=== PATIENT | male | born 1985 | race Caucasian/White ===

== ENCOUNTER 2017-03-10 18:08 | Emergency (ER) | payer OTHER ==
[~2017-03-10] VITALS: Ht 182.9 cm; Wt 98.1 kg
[~2017-03-10 18:08] MED LIST: DENIES
[2017-03-10 18:11] VITALS: Ht 182.9 cm; Wt 98.1 kg
--- NOTE | 2017-03-10 20:45 | ERD ---
ER Documentation Chief Complaint Date/Time DATE: 03/10/17 TIME: 20:41 Chief Complaint FELL A WEEK, HAS LEFT FOOT PAIN AND SWELLING HPI This patient is a 32-year-old male with no significant medical history presenting to the emergency department with left foot pain and swelling for the past 4 days. The patient did twist his left ankle approximately 1 week ago but pain resolved shortly after. 3 days after that injury occurred, and his left foot began with swelling and pain. Pain is aggravated by walking. Pain is alleviated with rest. He rates the pain a 6 out of 10 on the pain scale. He has taken no medication for relief of symptoms. He denies fevers, chills, or other symptoms currently. ROS All systems reviewed and are negative except as per history of present illness. Medications Home Meds Active Scripts Ibuprofen* (Motrin*) 600 Mg Tab, 600 MG PO Q6, #30 TAB Prov:ZO LO PA-C 03/10/17 Sulfamethoxazole/Trimethoprim* (Bactrim Ds* Tablet) 1 Each Tablet, 1 TAB PO BID for 7 Days, #14 TAB Prov:ZO LO PA-C 03/10/17 Cephalexin* (Keflex*) 500 Mg Capsule, 500 MG PO QID for 7 Days, #28 CAP Prov:ZO LO PA-C 03/10/17 Reported Medications [Denies] No Conflict Check 11/02/10 Allergies Allergies: Coded Allergies: No Known Allergies (Verified Allergy, Mild, 11/02/10) PMhx/Soc History of Surgery: No (DENIES MED AND SURG HX.) Anesthesia Reaction: No Hx Neurological Disorder: No Hx Respiratory Disorders: No Hx Cardiac Disorders: No Hx Psychiatric Problems: No Hx Miscellaneous Medical Probl: No Hx Alcohol Use: No Hx Substance Use: No Hx Tobacco Use: No Smoking Status: Never smoker Physical Exam Vitals Vital Signs Date Time Temp Pulse Resp B/P Pulse Ox O2 Delivery O2 Flow Rate FiO2 03/10/17 18:11 98.1 83 24 140/80 99 Physical Exam Const: Obese male in mild distress secondary to pain. Head: Atraumatic Eyes: Normal Conjunctiva ENT: Normal External Ears, Nose and Mouth. Neck: Full range of motion..~ No meningismus. Resp: Clear to auscultation bilaterally Cardio: Regular rate and rhythm, no murmurs Abd: Soft, non tender, non distended. Normal bowel sounds Skin: There is soft tissue swelling and erythema and warmth to the left foot. Back: No midline or flank tenderness Ext: No cyanosis, or edema. There is soft tissue swelling and erythema and warmth to the dorsal aspect of left foot with associated tenderness to palpation. The ankle joint shows no ecchymosis, swelling, redness, or erythema. There are no open sores or lesions to the left lower extremity noted. Patient has full range of motion of the left ankle. The right lower extremity is normal in appearance. Neur: Awake and alert Psych: Normal Mood and Affect Results 24 hrs Current Medications Medications (Trade) Dose Ordered Sig/Ruby Route PRN Reason Start Time Stop Time Status Last Admin Dose Admin Acetaminophen/ Hydrocodone Bitart ([place] (5/325)) 1 tab ONCE ONCE PO 03/10/17 21:00 03/10/17 21:01 DC 03/10/17 20:55 [place] [id number] Radiology Main Line: [phone] DIAGNOSTIC IMAGING REPORT Patient: TED RUSHING : 1985 Age: 32 Sex: M MR #: [id number] DOS: 03/10/17 0000 Ordering MD: ZO LO PA-C Location: E Room/Bed: PROCEDURE: XR Left Ankle CLINICAL INDICATION: Pain, swelling TECHNIQUE: Standard 3 view radiographs were submitted. COMPARISON: None FINDINGS: Osseous structures: A corticated ossification is seen at the tip of the lateral malleolus which likely represents a separate ossification center. No acute fracture is identified. Joint spaces: The ankle mortise is anatomically maintained. Soft tissues: There is soft tissue swelling seen about the lateral malleolus compatible with a sprain. IMPRESSION: Left ankle sprain. Physician Nola Date Time Electronically viewed and signed by Physician Nola on 03/10/2017 21:37 RH/ CC: ZO LO PA-C PROCEDURE: XR Left Foot CLINICAL INDICATION: Pain, swelling TECHNIQUE: AP, oblique, and lateral radiographs were submitted. COMPARISON: None FINDINGS: Osseous structures: appear well mineralized and intact with no fracture or destructive process identified. Joint spaces: are well maintained, with no significant spurring, erosion or joint effusion evident. Soft tissues: appear unremarkable. IMPRESSION: Unremarkable left foot. Physician Nola Date Time Electronically viewed and signed by Physician Nola on 03/10/2017 21:39 RH/ CC: ZO LO PA-C Procedures/MDM 32-year-old male presenting to the emergency department with complaints of left foot pain, redness, and swelling for the past 4 days. On physical examination the patient's vitals are within normal limits. Exam of the left lower extremity shows redness, swelling, and warmth and tenderness palpation of the left foot. The ankle appears normal. Diagnosis may be consistent with cellulitis, fracture, gout, and other etiologies. X-ray of the left ankle showed ankle sprain. X-ray of the left foot showed no acute abnormality. Radiology studies were interpreted by radiologist. The patient was given p.o. [place] in the department and he was feeling improved on reevaluation. Workup in the department is most likely consistent with cellulitis and he will be treated as an outpatient with a prescription for Bactrim and Keflex and ibuprofen. Strict ER return precautions were discussed. Close follow-up with the primary care physician was advised. If symptoms continue the patient was advised to return to the emergency department in 48 hours for repeat evaluation. Departure Diagnosis: Primary Impression: Foot pain Laterality: left Qualified Code: M79.672 - Left foot pain Additional Impression: Cellulitis Site of cellulitis: extremity Site of cellulitis of extremity: lower extremity Laterality: left Qualified Code: L03.116 - Cellulitis of left lower extremity Condition: Fair Patient Instructions: Cellulitis Additional Instructions: Follow up with your PCP within the next 1-3 days for a repeat evaluation. If you require a referral to a specialist, your Primary Care Provider may be able to provide this for you. In most patient cases, a referral is not required. If you have further questions regarding this matter, please ask your Primary Care Provider. Return the the emergency department immediately if symptoms worsen or change. If you have any questions regarding medications, ask your pharmacist or us before you leave. If any adverse reactions, occur while taking your medications, discontinue the treatment and return to the emergency department immediately. If any new or worsening symptoms, uncontrolled fevers, or other unexplained symptoms occur, return to the emergency department immediately. Take your medications as directed, and complete the entire course of treatment. ZO LO PA-C Mar 10, 2017 20:45
[2017-03-10] MEDS ORDERED: HYDROCODONE/APAP (5/325) TAB PO ONE (21:00)
--- NOTE | 2017-03-10 21:38 | RADRPT ---
PROCEDURE: XR Left Ankle CLINICAL INDICATION: Pain, swelling TECHNIQUE: Standard 3 view radiographs were submitted. COMPARISON: None FINDINGS: Osseous structures: A corticated ossification is seen at the tip of the lateral malleolus which like ly represents a separate ossification center. No acute fracture is identified. Joint spaces: The ankle mortise is anatomically maintained. Soft tissues: There is soft tissue swelling seen about the lateral malleolus compatible with a sprai n. IMPRESSION: Left ankle sprain. Physician Nola Date Time Electronically viewed and signed by Luigi Wells Physician on 03/10/2017 21:37 /
--- NOTE | 2017-03-10 21:39 | RADRPT ---
PROCEDURE: XR Left Foot CLINICAL INDICATION: Pain, swelling TECHNIQUE: AP, oblique, and lateral radiographs were submitted. COMPARISON: None FINDINGS: Osseous structures: appear well mineralized and intact with no fracture or destructive process iden tified. Joint spaces: are well maintained, with no significant spurring, erosion or joint effusion evident. Soft tissues: appear unremarkable. IMPRESSION: Unremarkable left foot. Physician Nola Date Time Electronically viewed and signed by Luigi Wells Physician on 03/10/2017 21:39 /
[2017-03-10] MEDS ORDERED: CEPH-443 PO (21:43)
[2017-03-10] MEDS ORDERED: SULF1TAB31 PO (21:44)
[2017-03-10] MEDS ORDERED: IBUP-1542 PO (21:44)
== END 2017-03-10 21:59 | disposition home or self-care (01) ==
LOC: FTE 18:08
DX: M79.672 Pain in left foot (principal); L03.116 Cellulitis of left lower limb
CPT/HCPCS: 73610